=== PATIENT | female | born 2000 | race Caucasian/White ===

== ENCOUNTER 2024-01-28 14:46 | Emergency (ER) | payer SELFPAY ==
[2024-01-28 14:49] VITALS: BP 128/78; PULSE 85; RESP 16; TEMP 37.1; O2SAT 99; BMI 31.8
--- NOTE | 2024-01-28 15:07 | ED_ITS ---
HPI - Dental/Oral General: Chief complaint: Dental/Oral Stated complaint: Tooth pain Time Seen by Provider: 01/28/24 15:01 Source: patient Mode of arrival: ambulatory Limitations: no limitations History of Present Illness: 23-year-old female states been having le ft lower dental pain has been going on for the last few weeks. States got much worse today she has tenderness to left lower molar with some swelling she denies any difficulty swallowing denies any fevers. Associated symptoms: Denies fever(s) Review of Systems Const: Denies: fever(s), chills, body aches or change in appetite ENMT: Reports: mouth pain; Denies: throat pain or dental pain Card: Denies: chest pain Resp: Denies: dyspnea GI: Denies: abdominal pain, nausea, vomiting or diarrhea Musc: Denies: neck pain or back pain Neuro: Denies: headache(s) [facility] ED Female Reproductive History: Date of last menstrual period: 01/24/24 Physical Exam Const: COMMON NORMALS: no acute distress, patient oriented x3 and healthy appearing HENMT: COMMON NORMALS: normocephalic and atraumatic HEAD & SCALP: normocephalic and atraumatic OTHER: Some tenderness over left lower molar no abscess or trismus Eye: COMMON NORMALS: Equal, round and reactive pupils present and EOMs intact bilaterally PUPIL: Yes Equal, round and reactive pupils present Neck/C-Spine: COMMON NORMALS: full ROM and supple Chest: COMMONS NORMALS: normal inspection of the chest Resp: COMMON NORMALS: normal respiratory effort Cardio: COMMON NORMALS: regular rate, regular rhythm and No murmurs present (Cardio) RATE: regular rate RHYTHM: regular rhythm Extremity: COMMON NORMALS: normal to inspection and full ROM Neuro: COMMON NORMALS: patient oriented x3, moves all extremities and no focal motor deficits Psych: COMMON NORMALS: mental status grossly normal, Normal thought process present and cooperative THOUGHT PROCESS: Normal thought process present Skin: COMMON NORMALS: no rashes or lesions noted and no wounds GENERAL SKIN EXAM: no rashes or lesions noted Course Vital Signs: Vital signs: Vital Signs Temperature 98.7 F 01/28/24 14:49 Pulse Rate 85 01/28/24 14:49 Respiratory Rate 16 01/28/24 14:49 Blood Pressure 128/78 01/28/24 14:49 Pulse Oximetry 99 01/28/24 14:49 MDM - Dental/Oral Medical Decision Making Patient presents here with dental pain she is tender on exam no trismus no absc ess we will start her on antibiotics she is to follow-up with dentist return if worsening Medical Records I reviewed the patient's medical records. No radiology studies performed this visit Discharge Plan Discharge Patient Disposition: Home Clinical Impression: Toothache Condition: Stable Prescriptions: New cephalexin 500 mg capsule 500 mg PO TID 7 Days Qty: 21 0RF Naprosyn 500 mg tablet 500 mg PO BID PRN (Reason: pain) Qty: 20 0RF Discharge Orders: Discharge ED (Routine); Ordered 01/28/24 Ordered By: Anjali Reagan Discharge Diet: Advance as tolerated Discharge Activity: Resume usual activity Patient Instructions: Toothache (ED) Coding Level of Care Code ED [employer] for [place]
[2024-01-28] MEDS: HYDROcodone-acetaminophen 5-325 mg Tablet 1 TAB PO (15:11)
[2024-01-28] MEDS: cephALEXin 500 mg Capsule PO (15:12)
[2024-01-28 15:18] VITALS: PULSE 83; RESP 14; O2SAT 100
== END 2024-01-28 15:19 | disposition home or self-care (01) ==
PROVIDERS: Emergency Provider Emergency Medicine
DX: K08.89 Other specified disorders of teeth and supporting structures (principal)
CPT/HCPCS: 99283